=== PATIENT | female | born 1955 | race Caucasian/White ===

== ENCOUNTER → 2016-12-31 | Outpatient (CLI) | payer BC | LOC: MC.RAD 10:17 | DX: Z12.31 Encounter for screening mammogram for malignant neoplasm of breast (principal); N64.89 Other specified disorders of breast ==

== ENCOUNTER → 2017-01-06 | Outpatient (CLI) | payer BC | LOC: MC.RAD 11:00 | DX: D48.62 Neoplasm of uncertain behavior of left breast (principal) ==

== ENCOUNTER → 2017-01-07 | Outpatient (CLI) | payer BC | LOC: MC.RAD 10:00 | DX: D24.2 Benign neoplasm of left breast (principal) ==

== ENCOUNTER → 2018-10-10 | Outpatient (CLI) | payer BC | LOC: COL.RAD 08:25 | DX: M65.311 Trigger thumb, right thumb (principal) | CPT/HCPCS: J3301; Q9967 ==

== ENCOUNTER → 2019-01-25 | Outpatient (CLI) | payer BC | LOC: MC.RAD 08:16 | DX: Z12.31 Encounter for screening mammogram for malignant neoplasm of breast (principal) ==

== ENCOUNTER → 2021-01-29 | Outpatient (CLI) | payer BC | LOC: MC.RAD 08:40 | DX: Z12.31 Encounter for screening mammogram for malignant neoplasm of breast (principal) ==

== ENCOUNTER → 2023-10-27 | Outpatient (CLI) | payer MEDICARE | LOC: MC.RAD 09:30 | DX: Z12.31 Encounter for screening mammogram for malignant neoplasm of breast (principal) ==